=== PATIENT | female | born 1960 | race Caucasian/White ===

== ENCOUNTER 2021-06-01 08:55 | Emergency (ER) | payer OTHER, SELFPAY ==
--- NOTE | 2021-06-01 08:56 | ED.SKABFB ---
HPI - Skin/Abscess/Foreign Bdy General Stated complaint: poison sumac / oak Time Seen by Provider: 06/01/21 08:56 Source: patient and RN notes reviewed History of Present Illness HPI narrative: Patient is a 61-year-old female who presents the urgent care with complaints of possible poison erica. Patient states that 2 days ago she was outside pulling weeds and picking berries and believes she may have gotten into something. Patient states that it is on her left eye, forehead, neck and, and left ear. Patient has not taken anything over the counter for her symptoms. No other acute complaints. No acute distress noted. Patient aware of the plan of care. Some parts of this dictation were generated by voice recognition software and may contain typographical and/or grammatical inaccuracies. Related Data Home Medications Medication Instructions Recorded Confirmed clonazepam 0.5 mg PO DAILY PRN 06/01/21 06/01/21 Allergies Allergy/AdvReac Type Severity Reaction Status Date / Time No Known Allergies Allergy Unverified 06/01/21 09:14 Review of Systems Review of Systems: Narrative: CONSTITUTIONAL: Denies fever, chills, or sweats. EYES: Denies visual changes, redness, or discharge. ENT: Denies rhinorrhea, congestion, sore throat, or otalgia. CARDIOVASCULAR: Denies chest pain, palpitations, or edema. RESPIRATORY: Denies cough or dyspnea. GASTROINTESTINAL: Denies abdominal pain, nausea, vomiting, or diarrhea. GENITOURINARY: Denies dysuria or hematuria. SKIN: Reports of itchy raised rash to the left eye, neck, forehead and ear MUSCULOSKELETAL: Denies back pain, joint pain, or myalgia. NEUROLOGIC: Denies headache, numbness, or weakness. All other systems reviewed are negative, except as documented in HPI. PMFSH Comments At the time of my signature, I reviewed and agree with the nursing past medical, surgical, social, and family history. There is no relevant family history pertinent to the patient complaint. Exam Narrative: Exam Narrative: GENERAL: This is a well-nourished, well-developed patient, in no apparent distress. HEAD: normocephalic, atraumatic. EYES: PERRL. Sclera clear/white. Vision is grossly intact. EARS: External ears normal NOSE: External nose normal with no obvious nasal discharge, nares without redness, no rhinorrhea. THROAT: Mucous membranes moist NECK: Neck supple CARDIOVASCULAR: Regular rate and rhythm without murmurs, gallops, or rubs. RESPIRATORY: Clear to auscultation. Breath sounds equal bilaterally. No wheezes, rales, or rhonchi. SKIN: Pruritic mildly erythemic scattered urticaria noted to the neck, forehead, left upper eyelid, and left ear NEURO: awake, alert, and oriented to person, place and time. There were no obvious focal neurologic abnormalities. EXTREMITIES: No clubbing, cyanosis, or edema. Course Vital Signs Vital signs: Vital Signs Temperature 99.4 F 06/01/21 09:05 Pulse Rate 70 06/01/21 09:05 Respiratory Rate 16 06/01/21 09:05 Blood Pressure 142/77 H 06/01/21 09:05 Pulse Oximetry 100 06/01/21 09:05 Temperature 99.4 F 06/01/21 09:05 Pulse Rate 70 06/01/21 09:05 Respiratory Rate 16 06/01/21 09:05 Blood Pressure 142/77 H 06/01/21 09:05 Pulse Oximetry 100 06/01/21 09:05 Reviewed-patient is informed that they may have pre-hypertension or hypertension based on a blood pressure reading in the department. I recommend the patient call the primary care provider listed on their discharge instructions or a physician of their choice this week to arrange follow-up for further evaluation of possible pre-hypertension or hypertension. MDM - Skin/Abscess/Foreign Bdy MDM Narrative Medical decision making narrative: Advised the patient to complete steroid regimen as prescribed. Use the prescription cream to the affected areas avoiding near the eyes, groin or underarms. Use TecNu scrub [id number] daily. May use an [id number] antihistamine such as Benadryl for itchin
[2021-06-01 09:05] VITALS: BP 142/77; PULSE 70; RESP 16; TEMP 37.4; O2SAT 100
== END 2021-06-01 09:17 | disposition home or self-care (01) ==
PROVIDERS: Emergency Provider Nurse Practitioner Family; PCP Family Medicine
DX: L23.7 Allergic contact dermatitis due to plants, except food (principal); F41.9 Anxiety disorder, unspecified
CPT/HCPCS: 99213; G0463

== ENCOUNTER → 2022-08-25 09:38 | Outpatient (CLI) | payer OTHER, SELFPAY ==
--- NOTE | ~2022-08-25 | MR_ITS ---
EXAMINATION: MR hip RT wo con DATE: 08/25/2022 10:30 INDICATION: Right hip pain TECHNIQUE: Magnetic resonance imaging (MRI) of the right hip was performed without intravenous contr ast. Sequences included full-field axial PD-weighted FS FSE and T1-weighted FSE, coronal of the pelvi s with PD-weighted FS FSE, T2-weighted FSE and T1-weighted FSE, small field of view of the right hip with axial PD-weighted FS FSE, sagittal PD-weighted FS FSE, coronal PD-weighted FS FSE and coronal T2 weighted FSE. Additional radial T1-weighted FGR oriented orthogonal to the acetabular rim were obt ained for evaluation of the labrum. COMPARISON: None FINDINGS: Bones/labrum/cartilage: Alignment is normal. No fracture, avascular necrosis or pathologic marrow replacing process. Transit ional lumbosacral segment with additional transitional thoracolumbar segment with bilateral hypoplast ic riblets evident on prior lumbar spine radiographs. For purposes of this report the lumbosacral seg ment which is sacralized bilaterally will be designated L5 with 4 more cephalad nonrib-bearing lumbar segments L1-L4. Severe bilateral facet osteoarthritis at L4-L5. Mild right hip osteoarthritis with p artial thickness cartilage loss with smooth chondral surface resulting in mild nonuniform joint space narrowing at the posterior superior to posterior margins of the joint space. There is degenerative t earing with diffuse amorphous increased signal at the 10:00-11:00 position of the posterior superior left acetabular labrum. Fluid: Symmetric physiologic amount of fluid within both hip joints. There is asymmetric and likely reactive mild extra-articular soft tissue edema along the capsule of the posterosuperior aspect of the right hip joint space. No bursitis or other abnormal fluid collections. Soft tissues: Normal and symmetric muscle bulk and signal in the pelvis and visualized proximal thighs. The iliopso as, gluteal and proximal hamstring tendons are normal. The uterus is not identified and has likely be en surgically resected. Limited evaluation of visceral organs of the pelvis is otherwise unremarkab le. No pathologically enlarged pelvic/inguinal lymphadenopathy. IMPRESSION: 1. Mild right hip osteoarthritis with focal degenerative tearing of the posterosuperior right acetabu lar labrum. Reviewed, dictated and finalized at location A. IMPRESSION: 1. Mild right hip osteoarthritis with focal degenerative tearing of the postero superior right acetabular labrum.
== END ==
PROVIDERS: PCP Family Medicine; Visit Provider Physician Assistant Surgical
DX: M16.11 Unilateral primary osteoarthritis, right hip (principal)
CPT/HCPCS: 73721